=== PATIENT | male | born 1975 | race Caucasian/White ===

== ENCOUNTER 2019-10-19 21:27 | Emergency (ER) | payer SELFPAY ==
[2019-10-19 21:36] VITALS: BP 133/75; PULSE 105; RESP 18; TEMP 36.5; O2SAT 100; BMI 29.5
--- NOTE | 2019-10-19 21:44 | XR_ITS ---
WS: [id number] [place] [address] REASON FOR EXAM: possible FB in arm FINDINGS: The bony humerus is evaluated 2 views. There is no fractures at the shoulder are elbow. The shaft of the humerus was normal. No visible foreign bodies are seen. XR/[place] [id number] IMPRESSION: No visible foreign bodies identified. The humerus appears to be normal.
--- NOTE | 2019-10-19 21:46 | W.ED.EXTPRO ---
HPI - Extremity Problem General: Chief complaint: Extremity Injury, Upper Stated complaint: Right arm pain Time Seen by Provider: 10/19/19 21:40 History of Present Illness: HPI Narrative: Patient was using a chain saw hit back some piece of metal flew off from that into his right humerus he says he was squirting blood from his arm he is got to stop says there is foreign body in his arm Complaint: extremity pain Onset (ago): hour(s) Pain Consistency: constant Location: right Severity scale (1-10): 2 Radiation: none Exacerbating factors: nothing Associated symptoms: Reports no associated symptoms; Deny chest pain, fever(s) or rash Review of Systems Const: Denies: fever(s), chills or body aches Eyes: Denies: change in vision or blurry vision ENMT: Denies: throat pain or nasal congestion Card: Denies: chest pain or dyspnea on exertion Resp: Denies: dyspnea, productive cough or non-productive cough GI: Denies: abdominal pain, nausea or vomiting : Denies: difficulty urinating Musc: Denies: extremity pain Skin/Breast: Reports: other (Possible piece of metal right humerus area vein was cut and he did have some bleeding but now that has been controlled); Denies: rash Neuro: Denies: headache(s) Psych: Denies: anxiety or depression Zach/Lymph: Denies: easy bruising PFSH ED PFSH: Social History Smoking and tobacco status: never smoked Physical Exam Const: COMMON NORMALS: no acute distress, average body habitus and patient oriented x3 HENMT: COMMON NORMALS: normocephalic HEAD & SCALP: normal to inspection and normocephalic FACE & SINUS: normal facial exam Eye: COMMON NORMALS: conjunctivae normal GENERAL EYE: appearance normal, both eyes and all related structures CONJUNCTIVA: Yes conjunctivae normal Neck/C-Spine: COMMON NORMALS: no JVD Chest: COMMONS NORMALS: normal inspection of the chest Resp: COMMON NORMALS: normal respiratory effort and clear to auscultation bilaterally AUSCULTATION: clear to auscultation bilaterally Cardio: COMMON NORMALS: no JVD, regular rate and regular rhythm RATE: regular rate RHYTHM: regular rhythm GI: COMMON NORMALS: Normal to inspection, nondistended, normoactive bowel sounds present Extremity: COMMON NORMALS: normal to inspection and full ROM Neuro: COMMON NORMALS: patient oriented x3 Skin: NARRATIVE SKIN EXAM: Small cut not a laceration to right humerus medial aspect distal part of the biceps Course Vital Signs: Vital signs: Vital Signs Temperature 97.7 F 10/19/19 21:36 Pulse Rate 105 H 10/19/19 21:36 Respiratory Rate 18 10/19/19 21:36 Blood Pressure 133/75 10/19/19 21:36 Pulse Oximetry 100 10/19/19 21:36 MDM - Extremity (Nontraumatic) Imaging Data^: Other Xray: My impression: Small metallic foreign body right humerus medial aspect Discharge Plan Discharge Patient Disposition: Home, Self-Care Clinical Impression: Foreign body in skin, Abrasion Condition: Stable Prescriptions: New Bactrim DS 800-160 mg tablet 1 tab PO BID 7 Days Qty: 14 RF: 0 Discharge Orders: Discharge Order (Routine); Ordered 10/19/19 Ordered By: Lei Alford Referrals: Kamron Madera, [Primary Care Provider] - Discharge Diet: Usual diet Discharge Activity: Resume usual activity Patient Instructions: Puncture Wound (ED) Activity Restrictions/Additional Instructions: Follow-up with medical provider as directed. Take medications as prescribed. Return to the ER or your medical provider if condition worsens. Please read and understand discharge instructions. If any questions ask please. Coding Level of Care Code ED Sow Manager for Mahnaz Fwnirmal Exam Comprehensive
[2019-10-19 22:24] VITALS: BP 147/54; PULSE 82; RESP 18; O2SAT 98
[2019-10-19] MEDS: tetanus-dipt-pertussis 0.5 mL SDV IM (22:29)
== END 2019-10-19 22:40 | disposition home or self-care (01) ==
LOC: ER 22:46
PROVIDERS: Emergency Provider Nurse Practitioner Family; PCP Family Medicine
DX: S41.141A Puncture wound with foreign body of right upper arm, initial encounter (principal); W29.3XXA Contact with powered garden and outdoor hand tools and machinery, initial encounter; Z23 Encounter for immunization
CPT/HCPCS: 12345; 73060; 90471; 90715; 99281; 99283